=== PATIENT | female | born 1990 ===

== ENCOUNTER 2018-12-11 17:14 | Emergency (ER) | payer BC ==
--- NOTE | 2018-12-11 18:00 | CT ---
CT OF BRAIN PERFORMED WITHOUT CONTRAST ENHANCEMENT: 12/11/18 HISTORY: Head injury post fall. The ventricular and cisternal system is within normal limits. There is no signs of intracerebral hemo rrhage or extra-axial fluid collections. The mastoid air cells and visualized sinuses are clear. IMPRESSION: No acute intracranial abnormalities. POS: [facility]
--- NOTE | 2018-12-11 18:32 | RAD ---
PORTABLE CHEST: 12/11/18 HISTORY: Fall with pain. Heart size and mediastinum are within normal limits. The lungs are clear of infiltrates. No pneumotho rax or rib fractures. IMPRESSION: Unremarkable chest. POS: [facility]
--- NOTE | 2018-12-11 18:32 | RAD ---
AP PELVIS: 12/11/18 HISTORY: Fall with pelvic pain. An IUD is present. The pelvic ring is intact without evidence of fracture. IMPRESSION: Negative AP pelvis. POS: [facility]
== END 2018-12-11 18:46 | disposition home or self-care (01) ==
LOC: ERS 17:14
DX: S00.93XA Contusion of unspecified part of head, initial encounter (principal); S20.219A Contusion of unspecified front wall of thorax, initial encounter; W19.XXXA Unspecified fall, initial encounter; W05.0XXA Fall from non-moving wheelchair, initial encounter
CPT/HCPCS: 70450; 71045; 72170